=== PATIENT | female | born 1985 | race Two or more races ===

== ENCOUNTER 2024-07-07 18:05 | Emergency (ER) | payer OTHER ==
[~2024-07-07] VITALS: Ht 165.1 cm; Wt 59.4 kg
[2024-07-07 18:35] VITALS: BP 94/65; TEMP 97.9
[2024-07-07] MEDS ORDERED: IBUP-1957 PO (19:49)
[2024-07-07] MEDS ORDERED: ACET325C7 PO (19:49)
[2024-07-07 20:25] VITALS: O2SAT 99
== END 2024-07-07 20:30 | disposition home or self-care (01) ==
LOC: ER 18:15
DX: S69.92XA Unspecified injury of left wrist, hand and finger(s), initial encounter (principal); F17.200 Nicotine dependence, unspecified, uncomplicated; Z79.1 Long term (current) use of non-steroidal anti-inflammatories (NSAID); W20.8XXA Other cause of strike by thrown, projected or falling object, initial encounter; Y93.89 Activity, other specified; Y92.89 Other specified places as the place of occurrence of the external cause; Y99.8 Other external cause status
CPT/HCPCS: 73140-TC